=== PATIENT | female | born 1985 | race American Indian/Alaskan Native ===

== ENCOUNTER 2017-11-26 18:09 | Inpatient (IN) | payer MEDICAID ==
[2017-11-26] MEDS ORDERED: LACTATED RINGERS 1,000 ML IV ONE (20:32)
[2017-11-26 21:46] LABS: Hematocrit 31.3 % (30.3-42.9); Hemoglobin 10.3 gm/dl (10.1-14.3); Mean Corpuscular HGB Conc 33 % (30-34); Mean Corpuscular Hemoglobin 27 pg (28-32); Mean Corpuscular Volume 83 fl (79-97); Platelet Count 322 K/mm3 (140-440); Red Blood Count 3.79 M/mm3 (3.65-5.03); Red Cell Distribution Width 17.5 % (13.2-15.2)
[2017-11-27] MEDS ORDERED: LACTATED RINGERS 1,000 ML ONE (06:15)
[2017-11-27] MEDS: STADOL IV PRN ×2 (06:19→08:46)
--- NOTE | 2017-11-27 09:54 | History and Physical Report ---
History of Present Illness Date of examination: 11/27/17 Date of admission: 11/26/17 22:43 Chief complaint: My water broke at 1530 on 11/26/2017 History of present illness: Early entry to care, course complicated by Anemia (FeSO4 PO BID), and a Facial lesion ([facility] Consult). Past History Past Medical History: no pertinent history Past Surgical History: no surgical history Family/Genetic History: none Social history: no significant social history - Obstetrical History Expected Date of Delivery: 12/05/17 Actual Gestation: 38 Week(s) 6 Day(s) : 3 Para: 2 Hx # Term Pregnancies: 1 Number of Pregnancies: 1 Number of Living Children: 2 #1 Infant Gender: Male year: 2,007 Birthweight: 2.523 kg Method of Delivery: Vaginal Gestational age at delivery: 36 #2 Infant Gender: Female year: 2,017 Birthweight: 2.722 kg Method of Delivery: Vaginal Gestational age at delivery: 40 Complications: none Medications and Allergies Allergies Allergy/AdvReac Type Severity Reaction Status Date / Time No Known Allergies Allergy Unverified 09/27/15 18:55 Home Medications Medication Instructions Recorded Confirmed Last Taken Type Acetaminophen/Codeine [Tylenol #3] 1 tab PO Q6H PRN #7 tab 09/28/15 11/27/17 Unknown Rx Ferrous Sulfate [Feosol 325 MG tab] 1 tab PO QDAY 11/27/17 11/27/17 11/25/17 18: 00 History 1 Vits96/Iron Fum/Folic 1 tab PO QDAY 11/27/17 11/27/17 11/25/17 18:00 History [ Tablet] 1 Active Meds: Active Medications Butorphanol Tartrate (Stadol) 2 mg IV Q2H PRN PRN Reason: Labor Pain Last Admin: 11/27/17 08:46 Dose: 2 mg Oxytocin/Sodium Chloride (Pitocin/Ns 20 Unit/1000ml Drip) 20 units in 1,000 mls @ 125 mls/hr IV DIRECT SEBASTIÁN Oxytocin/Sodium Chloride (Pitocin/Ns 30 Unit/500ml) 30 units in 500 mls @ 4 mls /hr IV TITR SEBASTIÁN; Protocol Last Titration: 11/27/17 09:45 Dose: 8 ml/hr, 8 mls/hr Review of Systems All systems: negative - Vital Signs Vital signs: Vital Signs Pulse BP 85 134/77 11/26/17 20:12 11/26/17 20:12 Temp Pulse Resp BP Pulse Ox 98.8 F 88 18 131/76 98 11/27/17 07:55 11/27/17 09:47 11/27/17 06:49 11/27/17 09:28 11/27/17 09:47 - Physical Exam Breasts: Positive: normal Cardiovascular: Regular rate Lungs: Positive: Clear to auscultation, Normal air movement Abdomen: Positive: normal appearance, soft, normal bowel sounds Genitourinary (Female): Positive: normal external genitalia, normal perenium Uterus: Positive: enlarged - Obstetrical FHR: category 1 Uterine Contraction Monitor Mode: External Cervical Dilatation: 5.5 (Leaking a moderate amount of clear fluid) Cervical Effacement Percentage: 60 station: -2 Uterine Contraction Pattern: Irregular Uterine Tone Measurement Phase: Resting Uterine Contraction Intensity: Moderate Results Result Diagrams: 11/26/17 20:44 Abnormal lab results 11/26/17 Range/Units 20:44 WBC 12.8 H (4.5-11.0) K/mm3 MCH 27 L (28-32) pg RDW 17.5 H (13.2-15.2) % All other labs normal. Assessment and Plan A: IUP @ 38 6/7 Weeks Category I Tracing PROM (Prolonged Rupture) GBS Negative P: Admit to L&D per Routine Orders ABX Prophylaxis due to prolonged rupture Pitocin Induction IV Pain Control
[2017-11-27] MEDS ORDERED: MINERAL OIL PO PRN (09:59)
[2017-11-27] MEDS ORDERED: NARCAN 0.4 MG/1 ML IV PRN (09:59)
[2017-11-27] MEDS ORDERED: XYLOCAINE 2% INFILTRATI ONE (09:59)
[2017-11-27] MEDS ORDERED: POLYCILLIN/NS 2 GM/100 ML 2 GM/100 ML BAG IV ONE (09:59)
[2017-11-27] MEDS ORDERED: ZOFRAN IV PRN (09:59)
[2017-11-27] MEDS ORDERED: LACTATED RINGERS 1,000 ML IV SCH (10:00)
[2017-11-27] MEDS ORDERED: PITOCin/NS 30 UNIT/500ML 30 UNITS/500 ML BAG IV SCH (10:00)
[2017-11-27] MEDS ORDERED: AMPICILLIN/NS 1 GM/50 ML 1 GM/50 ML BAG IV SCH (14:01)
--- NOTE | 2017-11-27 14:26 | Progress Note ---
Assessment and Plan A: IUP @ 38 6/7 Weeks Category I Tracing PROM (Prolonged Rupture) GBS Negative Poor Pain Control P: Epidural Anesthesia Internals X2 Continue Pitocin Augmentation Continue ABX Prophylaxis Subjective - Subjective Date of service: 11/27/17 Interval history: Early entry to care, course complicated by Anemia (FeSO4 PO BID), and a Facial lesion ([facility] Consult). Patient reports: loss of fluid, movement normal, contractions (Requesting Epidural) Objective - Vital Signs Vital Signs: Vital Signs - 12hr 11/27/17 11/27/17 11/27/17 02:26 02:31 02:36 Temperature Pulse Rate 86 90 84 Respiratory Rate Blood Pressure Blood Pressure [Left] O2 Sat by Pulse 96 96 96 Oximetry 11/27/17 11/27/17 11/27/17 02:41 02:46 02:51 Temperature Pulse Rate 104 H 90 100 H Respiratory Rate Blood Pressure Blood Pressure [Left] O2 Sat by Pulse 97 96 96 Oximetry 11/27/17 11/27/17 11/27/17 02:56 03:01 03:06 Temperature Pulse Rate 95 H 94 H 90 Respiratory Rate Blood Pressure Blood Pressure [Left] O2 Sat by Pulse 97 97 98 Oximetry 11/27/17 11/27/17 11/27/17 03:11 03:16 03:21 Temperature Pulse Rate 88 85 92 H Respiratory Rate Blood Pressure Blood Pressure [Left] O2 Sat by Pulse 97 97 98 Oximetry 11/27/17 11/27/17 11/27/17 03:26 03:31 03:36 Temperature Pulse Rate 87 87 93 H Respiratory Rate Blood Pressure Blood Pressure [Left] O2 Sat by Pulse 97 97 98 Oximetry 11/27/17 11/27/17 11/27/17 03:37 03:41 03:46 Temperature 98.5 F Pulse Rate 91 H 97 H 88 Respiratory 18 Rate Blood Pressure 125/70 Blood Pressure 125/70 [Left] O2 Sat by Pulse 89 97 96 Oximetry 11/27/17 11/27/17 11/27/17 03:51 03:56 04:01 Temperature Pulse Rate 94 H 88 96 H Respiratory Rate Blood Pressure Blood Pressure [Left] O2 Sat by Pulse 97 97 96 Oximetry 11/27/17 11/27/17 11/27/17 04:06 04:11 04:16 Temperature Pulse Rate 92 H 103 H 94 H Respiratory Rate Blood Pressure Blood Pressure [Left] O2 Sat by Pulse 96 96 97 Oximetry 11/27/17 11/27/17 11/27/17 04:36 04:37 04:41 Temperature Pulse Rate 95 H 50 L 94 H Respiratory Rate Blood Pressure Blood Pressure [Left] O2 Sat by Pulse 98 92 98 Oximetry 11/27/17 11/27/17 11/27/17 04:46 04:51 04:56 Temperature Pulse Rate 103 H 91 H 91 H Respiratory Rate Blood Pressure Blood Pressure [Left] O2 Sat by Pulse 98 96 97 Oximetry 11/27/17 11/27/17 11/27/17 05:01 05:06 05:11 Temperature Pulse Rate 96 H 91 H 94 H Respiratory Rate Blood Pressure Blood Pressure [Left] O2 Sat by Pulse 97 97 99 Oximetry 11/27/17 11/27/17 11/27/17 05:16 05:21 05:26 Temperature Pulse Rate 97 H 91 H 98 H Respiratory Rate Blood Pressure Blood Pressure [Left] O2 Sat by Pulse 97 98 97 Oximetry 11/27/17 11/27/17 11/27/17 05:31 05:36 05:41 Temperature Pulse Rate 100 H 101 H 103 H Respiratory Rate Blood Pressure Blood Pressure [Left] O2 Sat by Pulse 96 97 99 Oximetry 11/27/17 11/27/17 11/27/17 05:46 05:51 05:56 Temperature Pulse Rate 93 H 106 H 104 H Respiratory Rate Blood Pressure Blood Pressure [Left] O2 Sat by Pulse 97 98 97 Oximetry 11/27/17 11/27/17 11/27/17 06:01 06:06 06:11 Temperature Pulse Rate 104 H 97 H 98 H Respiratory Rate Blood Pressure Blood Pressure [Left] O2 Sat by Pulse 99 97 97 Oximetry 11/27/17 11/27/17 11/27/17 06:16 06:19 06:21 Temperature Pulse Rate 102 H 105 H Respiratory 16 Rate Blood Pressure Blood Pressure [Left] O2 Sat by Pulse 99 97 Oximetry 11/27/17 11/27/17 11/27/17 06:25 06:26 06:31 Temperature Pulse Rate 107 H 107 H 98 H Respiratory Rate Blood Pressure Blood Pressure [Left] O2 Sat by Pulse 94 94 96 Oximetry 11/27/17 11/27/17 11/27/17 06:36 06:41 06:46 Temperature Pulse Rate 101 H 98 H 99 H Respiratory Rate Blood Pressure Blood Pressure [Left] O2 Sat by Pulse 97 96 98 Oximetry 11/27/17 11/27/17 11/27/17 06:49 06:50 06:51 Temperature Pulse Rate 101 H 99 H Respiratory 18 Rate Blood Pressure Blood Pressure [Left] O2 Sat by Pulse 94 97 Oximetry 11/27/17 11/27/17 11/27/17 06:56 07:01 07:06 Temperature Pulse Rate 99 H 98 H 103 H Respiratory Rate Blood Pressure Blood Pressure [Left] O2 Sat by Pulse 96 96 97 Oximetry 11/27/17 11/27/17 11/27/17 07:11 07:16 07:17 Temperature Pulse Rate 94 H 98 H 100 H Respiratory Rate Blood Pressure 135/72 Blood Pressure [Left] O2 Sat by Pulse 96 97 Oximetry 11/27/17 11/27/17 11/27/17 07:21 07:26 07:31 Temperature Pulse Rate 99 H 97 H 95 H Respiratory Rate Blood Pressure Blood Pressure [Left] O2 Sat by Pulse 97 96 97 Oximetry 11/27/17 11/27/17 11/27/17 07:36 07:41 07:46 Temperature Pulse Rate 99 H 93 H 94 H Respiratory Rate Blood Pressure Blood Pressure [Left] O2 Sat by Pulse 97 97 96 Oximetry 11/27/17 11/27/17 11/27/17 07:51 07:55 07:56 Temperature 98.8 F Pulse Rate 99 H 97 H Respiratory Rate Blood Pressure Blood Pressure [Left] O2 Sat by Pulse 97 97 Oximetry 11/27/17 11/27/17 11/27/17 08:01 08:06 08:11 Temperature Pulse Rate 97 H 94 H 94 H Respiratory Rate Blood Pressure Blood Pressure [Left] O2 Sat by Pulse 98 97 97 Oximetry 11/27/17 11/27/17 11/27/17 08:16 08:21 08:47 Temperature Pulse Rate 97 H 90 98 H Respiratory Rate Blood Pressure Blood Pressure [Left] O2 Sat by Pulse 97 97 96 Oximetry 11/27/17 11/27/17 11/27/17 08:52 08:57 09:02 Temperature Pulse Rate 95 H 110 H 98 H Respiratory Rate Blood Pressure Blood Pressure [Left] O2 Sat by Pulse 96 98 96 Oximetry 11/27/17 11/27/17 11/27/17 09:04 09:07 09:11 Temperature Pulse Rate 100 H 95 H 97 H Respiratory Rate Blood Pressure Blood Pressure [Left] O2 Sat by Pulse 94 95 94 Oximetry 11/27/17 11/27/17 11/27/17 09:12 09:17 09:18 Temperature Pulse Rate 96 H 94 H 95 H Respiratory Rate Blood Pressure Blood Pressure [Left] O2 Sat by Pulse 96 94 94 Oximetry 11/27/17 11/27/17 11/27/17 09:22 09:27 09:28 Temperature Pulse Rate 97 H 91 H 93 H Respiratory Rate Blood Pressure 131/76 Blood Pressure [Left] O2 Sat by Pulse 97 97 Oximetry 11/27/17 11/27/17 11/27/17 09:32 09:37 09:40 Temperature Pulse Rate 98 H 97 H 94 H Respiratory Rate Blood Pressure Blood Pressure [Left] O2 Sat by Pulse 96 97 92 Oximetry 11/27/17 11/27/17 11/27/17 09:42 09:47 09:52 Temperature Pulse Rate 89 88 90 Respiratory Rate Blood Pressure Blood Pressure [Left] O2 Sat by Pulse 97 98 96 Oximetry 11/27/17 11/27/17 11/27/17 09:55 09:57 09:58 Temperature Pulse Rate 90 93 H 90 Respiratory Rate Blood Pressure 132/74 Blood Pressure [Left] O2 Sat by Pulse 94 95 Oximetry 11/27/17 11/27/17 11/27/17 10:02 10:04 10:07 Temperature Pulse Rate 89 93 H 94 H Respiratory Rate Blood Pressure Blood Pressure [Left] O2 Sat by Pulse 96 94 96 Oximetry 11/27/17 11/27/17 11/27/17 10:12 10:17 10:18 Temperature Pulse Rate 96 H 94 H 92 H Respiratory Rate Blood Pressure Blood Pressure [Left] O2 Sat by Pulse 97 94 94 Oximetry 11/27/17 11/27/17 11/27/17 10:22 10:27 10:29 Temperature Pulse Rate 91 H 93 H 89 Respiratory Rate Blood Pressure 157/81 Blood Pressure [Left] O2 Sat by Pulse 93 98 Oximetry 11/27/17 11/27/17 11/27/17 10:32 10:35 10:37 Temperature Pulse Rate 90 96 H 91 H Respiratory Rate Blood Pressure Blood Pressure [Left] O2 Sat by Pulse 96 93 95 Oximetry 11/27/17 11/27/1718 10:42 10:46 10:47 Temperature Pulse Rate 91 H 92 H 93 H Respiratory Rate Blood Pressure 150/80 Blood Pressure [Left] O2 Sat by Pulse 96 97 Oximetry 11/27/17 11/27/17 11/27/17 10:52 10:57 10:59 Temperature Pulse Rate 89 89 88 Respiratory Rate Blood Pressure 146/80 Blood Pressure [Left] O2 Sat by Pulse 100 99 Oximetry 11/27/17 11/27/17 11/27/17 11:02 11:07 11:12 Temperature Pulse Rate 89 87 93 H Respiratory Rate Blood Pressure Blood Pressure [Left] O2 Sat by Pulse 100 100 100 Oximetry 11/27/17 11/27/17 11/27/17 11:17 11:22 11:27 Temperature Pulse Rate 88 92 H 90 Respiratory Rate Blood Pressure Blood Pressure [Left] O2 Sat by Pulse 100 99 99 Oximetry 11/27/17 11/27/17 11/27/17 11:28 11:32 11:37 Temperature Pulse Rate 90 91 H 96 H Respiratory Rate Blood Pressure 147/88 Blood Pressure [Left] O2 Sat by Pulse 99 100 Oximetry 11/27/17 11/27/17 11/27/17 11:42 11:46 11:53 Temperature Pulse Rate 92 H 25 L 97 H Respiratory Rate Blood Pressure Blood Pressure [Left] O2 Sat by Pulse 99 88 100 Oximetry 11/27/17 11/27/17 11/27/17 11:58 12:00 12:03 Temperature Pulse Rate 93 H 92 H 94 H Respiratory Rate Blood Pressure 140/72 Blood Pressure [Left] O2 Sat by Pulse 100 100 Oximetry 11/27/17 11/27/17 11/27/17 12:08 12:13 12:18 Temperature Pulse Rate 96 H 95 H 102 H Respiratory Rate Blood Pressure Blood Pressure [Left] O2 Sat by Pulse 100 99 99 Oximetry 11/27/17 11/27/17 11/27/17 12:23 12:28 12:29 Temperature Pulse Rate 101 H 97 H 97 H Respiratory Rate Blood Pressure 129/66 Blood Pressure [Left] O2 Sat by Pulse 99 99 Oximetry 11/27/17 11/27/17 11/27/17 12:33 12:38 12:43 Temperature Pulse Rate 96 H 98 H 103 H Respiratory Rate Blood Pressure Blood Pressure [Left] O2 Sat by Pulse 99 98 99 Oximetry 11/27/17 11/27/17 11/27/17 12:48 12:53 12:58 Temperature Pulse Rate 95 H 98 H 99 H Respiratory Rate Blood Pressure Blood Pressure [Left] O2 Sat by Pulse 99 99 99 Oximetry 11/27/17 11/27/17 11/27/17 12:59 13:03 13:08 Temperature Pulse Rate 96 H 96 H 98 H Respiratory Rate Blood Pressure 133/79 Blood Pressure [Left] O2 Sat by Pulse 99 100 Oximetry 11/27/17 11/27/17 11/27/17 13:13 13:29 13:48 Temperature Pulse Rate 97 H 98 H 106 H Respiratory Rate Blood Pressure 138/79 Blood Pressure [Left] O2 Sat by Pulse 99 98 Oximetry 11/27/17 11/27/17 11/27/17 13:53 13:58 14:03 Temperature Pulse Rate 99 H 97 H 105 H Respiratory Rate Blood Pressure 145/77 Blood Pressure [Left] O2 Sat by Pulse 98 98 96 Oximetry 11/27/17 11/27/17 11/27/17 14:08 14:13 14:18 Temperature Pulse Rate 105 H 106 H 106 H Respiratory Rate Blood Pressure Blood Pressure [Left] O2 Sat by Pulse 94 97 96 Oximetry 11/27/17 14:19 Temperature Pulse Rate 112 H Respiratory Rate Blood Pressure Blood Pressure [Left] O2 Sat by Pulse 94 Oximetry - Exam Breasts: normal, mass Lungs: Clear to auscultation, Normal air movement Abdomen: Present: normal appearance, soft, normal bowel sounds Uterus: Present: normal, firm, fundal height above umbilicus FHR: category 1 Uterine Contraction Monitor Mode: Internal Cervical Dilatation: 7.5 (leaking a moderate amount of clear fluid) Cervical Effacement Percentage: 85 station: 1-2 Uterine Contraction Pattern: Regular Uterine Tone Measurement Phase: Resting Uterine Contraction Intensity: Strong/Firm Extremities: normal - Labs Labs: Abnormal Labs 11/26/17 20:44 WBC 12.8 H MCH 27 L RDW 17.5 H Laboratory Results - last 24 hr 11/26/17 11/26/17 11/26/17 20:44 20:44 20:48 WBC 12.8 H RBC 3.79 Hgb 10.3 Hct 31.3 MCV 83 MCH 27 L MCHC 33 RDW 17.5 H Plt Count 322 RPR Nonreactive Blood Type O POSITIVE Antibody Screen Negative
[2017-11-27] MEDS ORDERED: NARCAN 2 MG/2 ML IV PRN (14:38)
--- NOTE | 2017-11-27 14:38 | Anesthesia Consultation ---
Anesthesia Consult and Med Hx Date of service: 11/27/17 - Airway Anesthetic Teeth Evaluation: Good ROM Head & Neck: Adequate Mental/Hyoid Distance: Adequate Mallampati Class: Class II Intubation Access Assessment: Probably Good - Pre-Operative Health Status ASA Pre-Surgery Classification: ASA2 Proposed Anesthetic Plan: Epidural, Spinal - Pulmonary Hx Asthma: No COPD: No Hx Pneumonia: No - Cardiovascular System Hx Hypertension: No - Central Nervous System Hx Seizures: No Hx Psychiatric Problems: No - Endocrine Hx Renal Disease: No Hx End Stage Renal Disease: No Hx Hypothyroidism: No Hx Hyperthyroidism: No - Hematic Hx Anemia: No Hx Sickle Cell Disease: No - Other Systems Hx Alcohol Use: No
[2017-11-27] MEDS: PITOCin/NS 20 UNIT/1000ML DRIP 20 UNITS/1,000 ML BAG IV SCH ×2 (15:00→15:43)
[2017-11-27] MEDS ORDERED: fentaNYL-BUPIV 2 MCG/ML-0.125% 200 MCG/100 ML BAG EPIDURAL SCH (15:00)
[2017-11-27] MEDS ORDERED: BENADRYL PO PRN (15:22)
[2017-11-27] MEDS ORDERED: NORCO 5/325 PO PRN (15:22)
--- NOTE | 2017-11-27 15:32 | Procedure Note ---
OB Delivery Note - Delivery Date of Delivery: 11/27/17 (1454) Surgeon: EV DEGROOT Estimated blood loss: other (250) - Vaginal Delivery presentation: vertex Delivery position: OA Intrapartum events: prolonged active phase Delivery induction: none Delivery monitor: internal FHT, internal uterine Route of delivery: Delivery placenta: spontaneous Delivery cord: 3 umbilical vessels Episiotomy: none Delivery laceration: none Anesthesia: epidural Delivery comments: of a live 6'13 female over a intact perineum under epidural anesthesia with Apgars of 8 and 9 at 1454 on 11/27/2017. directly to maternal abd/chest, skin to skin contact. Delayed cord clamping and cutting; cord cut by the Father of the Baby. Spontaneous delivery of placenta complete and intact with Dick side presenting at 1502. Fundus is firm and midline located 4 below the U. Lochia is scant. Cord blood collected; Placenta discarded. - Infant A at 1 minute: 8 at 5 minutes: 9 Infant Gender: Female (6'13)
[2017-11-27] MEDS ORDERED: SODIUM CHLORIDE FLUSH SYRINGE 10 ML IV NR (16:00)
[2017-11-27] MEDS: MOTRIN PO SCH ×2 (16:52→23:08)
[2017-11-28] MEDS: MOTRIN PO SCH ×3 (05:35→18:05)
[2017-11-28 05:55] LABS: Hematocrit 26.1 % (30.3-42.9); Hemoglobin 8.5 gm/dl (10.1-14.3)
--- NOTE | 2017-11-28 08:58 | Progress Note ---
Assessment and Plan - Patient Problems (1) Status post normal vaginal delivery Current Visit: Yes Status: Acute Plan to address problem: PPD 1 - stable Vital signs stable Continue routine PP orders Anticipate discharge in 24-48 hrs (2) Anemia in puerperium, baby delivered during current episode of care Current Visit: Yes Status: Acute Plan to address problem: Asymptomatic Iron therapy initiated with ferrous sulfate 325mg PO BID Subjective - Subjective Date of service: 11/28/17 Principal diagnosis: PPD #1, s/p Patient reports: appetite normal, voiding normally, pain well controlled, ambulating normally, other (c/o fever and chills last night; self-resolved), no dizzy ambulation : doing well Objective - Vital Signs Latest vital signs: Vital Signs Temp Pulse Resp BP BP Pulse Ox 11/28/17 06:35 16 11/28/17 05:35 18 11/28/17 00:07 20 11/27/17 23:08 20 11/27/17 17:10 99.1 F 94 H 16 141/81 97 11/27/17 16:52 20 11/27/17 16:00 98.7 F 11/27/17 15:58 97 H 145/77 11/27/17 15:00 112 H 119/71 11/27/17 14:58 103 H 130/76 11/27/17 14:53 107 H 100 11/27/17 14:48 109 H 100 11/27/17 14:43 102 H 97 11/27/17 14:42 104 H 128/69 11/27/17 14:38 107 H 96 11/27/17 14:33 114 H 97 11/27/17 14:28 107 H 96 11/27/17 14:23 108 H 98 11/27/17 14:19 112 H 94 11/27/17 14:18 106 H 96 11/27/17 14:13 106 H 97 11/27/17 14:08 105 H 94 11/27/17 14:03 105 H 96 11/27/17 14:00 98.8 F 11/27/17 13:58 97 H 145/77 98 11/27/17 13:53 99 H 98 11/27/17 13:48 106 H 98 11/27/17 13:29 98 H 138/79 11/27/17 13:13 97 H 99 11/27/17 13:08 98 H 100 11/27/17 13:03 96 H 99 11/27/17 12:59 96 H 133/79 11/27/17 12:58 99 H 99 11/27/17 12:53 98 H 99 11/27/17 12:48 95 H 99 11/27/17 12:43 103 H 99 11/27/17 12:38 98 H 98 11/27/17 12:33 96 H 99 11/27/17 12:29 97 H 129/66 11/27/17 12:28 97 H 99 11/27/17 12:23 101 H 99 11/27/17 12:18 102 H 99 11/27/17 12:13 95 H 99 11/27/17 12:08 96 H 100 11/27/17 12:03 94 H 100 11/27/17 12:00 98.8 F 92 H 140/72 11/27/17 11:58 93 H 100 11/27/17 11:53 97 H 100 11/27/17 11:46 25 L 88 11/27/17 11:42 92 H 99 11/27/17 11:37 96 H 100 11/27/17 11:32 91 H 99 11/27/17 11:28 90 147/88 11/27/17 11:27 90 99 11/27/17 11:22 92 H 99 11/27/17 11:17 88 100 11/27/17 11:12 93 H 100 11/27/17 11:07 87 100 11/27/17 11:02 89 100 11/27/17 10:59 88 146/80 11/27/17 10:57 89 99 11/27/17 10:52 89 100 11/27/17 10:47 93 H 97 11/27/17 10:46 92 H 150/80 18 10:42 91 H 96 11/27/17 10:37 91 H 95 11/27/17 10:35 96 H 93 11/27/17 10:32 90 96 18 10:29 89 157/81 11/27/17 10:27 93 H 98 11/27/17 10:22 91 H 93 11/27/17 10:18 92 H 94 18 10:17 94 H 94 11/27/17 10:12 96 H 97 11/27/17 10:07 94 H 96 11/27/17 10:04 93 H 94 11/27/17 10:02 89 96 11/27/17 10:00 98.6 F 11/27/17 09:58 90 132/74 11/27/17 09:57 93 H 95 11/27/17 09:55 90 94 11/27/17 09:52 90 96 11/27/17 09:47 88 98 11/27/17 09:42 89 97 11/27/17 09:40 94 H 92 11/27/17 09:37 97 H 97 11/27/17 09:32 98 H 96 11/27/17 09:28 93 H 131/76 11/27/17 09:27 91 H 97 11/27/17 09:22 97 H 97 11/27/17 09:18 95 H 94 11/27/17 09:17 94 H 94 11/27/17 09:12 96 H 96 11/27/17 09:11 97 H 94 11/27/17 09:07 95 H 95 11/27/17 09:04 100 H 94 11/27/17 09:02 98 H 96 11/27/17 08:57 110 H 98 Intake and Output 11/27/17 11/28/17 11/28/17 23:59 07:59 15:59 Other: Estimated Blood Loss 250 - Exam Abdomen: Present: normal appearance, soft Vulva: both: normal Uterus: Present: normal, firm, fundal height at umbilicus Extremities: Present: normal - Labs Labs: Abnormal lab results 11/28/17 Range/Units 05:12 Hgb 8.5 L (10.1-14.3) gm/dl Hct 26.1 L (30.3-42.9) %
[2017-11-28] MEDS: FEOSOL PO SCH (12:24)
[2017-11-28] MEDS ORDERED: ROXICODONE PO ONE (21:31)
[2017-11-29] MEDS ORDERED: ROXICODONE PO ONE (00:10)
[2017-11-29] MEDS: FEOSOL PO SCH ×2 (00:22→10:30)
[2017-11-29] MEDS: MOTRIN PO SCH ×2 (00:22→08:56)
--- NOTE | 2017-11-29 09:31 | Progress Note ---
Assessment and Plan A: day 2 S/P . Anemia. P: Discharge patient home today. discharge instructions and warning signs discussed in detail with patient. Rx Motrin 800 mg, #30, 1 po every 8 hour prn pain, 0 RF and Augmentin 500 mg, #14, 1 po BID called to [facility] on [address]. Advised patient to continue taking vitamins and iron supplements at home (patient states she has plenty of both at home). Advised patient to avoid intercourse, avoid driving, avoid lifting and heavy housework. Advised patient to follow up at [facility] in 6 weeks. Advised pt. to return promptly if she has any problems in the interim. Pt. voiced understanding of instructions. Subjective - Subjective Date of service: 11/29/17 Principal diagnosis: PPD #2, s/p Interval history: day 2 S/P spontaneous vaginal delivery. Patient is doing well. She reports small amount of lochia. She denies clots. She is voiding without difficulty. She is ambulating well. Tolerating a regular diet without nausea or vomiting. Patient is and bottlefeeding. She is planning to use Nexplanon for contraception at 8 weeks . Patient denies headache, cough, shortness of breath, chest pain, abdominal pain , leg pain, heavy bleeding, or symptoms of depression. Patient reports: appetite normal, voiding normally, pain well controlled, flatus , ambulating normally : doing well Objective - Vital Signs Latest vital signs: Vital Signs Temp Pulse Resp BP 11/29/17 08:56 18 11/29/17 01:36 98.3 F 82 18 99/52 11/28/17 16:50 98.3 F 73 18 111/67 Intake and Output 11/28/17 11/29/17 11/29/17 23:59 07:59 15:59 Intake Total 480 Balance 480 Intake: Oral 120 Intake, Free Water 360 Other: Total, Intake Amount 120 # Voids Void 1 2 - Exam Cardiovascular: Present: Regular rate, Normal S1, Normal S2 Lungs: Present: Clear to auscultation Abdomen: Present: normal appearance, soft, normal bowel sounds. Absent: distention, tenderness, guarding, rigidity Uterus: Present: normal, firm, fundal height at umbilicus Extremities: Present: normal. Absent: tenderness, edema
--- NOTE | 2017-11-29 09:45 | Discharge Summary ---
Providers - Providers Date of Admission: 11/26/17 22:43 Date of discharge: 11/29/17 Attending physician: CAS OBANDO Primary care physician: CAS OBANDO Hospitalization Reason for admission: rupture of membranes Delivery: Episiotomy: none Laceration: none Other procedures: none complications: none Discharge diagnosis: IUP at term delivered baby: female Pertinent studies: Labs Hospital course: Normal hospital course. Condition at discharge: Good Disposition: DC-01 TO HOME OR SELFCARE - Discharge Diagnoses (1) Term delivered Status: Acute Plan - Provider Discharge Summary Activity: routine, no sex for 6 weeks, no heavy lifting 4 weeks, no strenuous exercise Diet: routine Instructions: routine Additional instructions: Call your doctor immediately for: * Fever > 100.5 * Heavy vaginal bleeding ( >1 pad per hour) * Severe persistent headache * Shortness of breath * Reddened, hot, painful area to leg or breast - Follow up plan Follow up: CAS OBANDO [Primary Care Provider] - 6 Weeks
[2017-11-29 19:47] VITALS: BP 122/78
== END 2017-11-29 16:40 | disposition home or self-care (01) | DRG 775 ==
LOC: TRG 18:09 → LD 22:43 → OB 11-27 17:25
PROVIDERS: ADMIT Obstetrics & Gynecology; ATTEND Obstetrics & Gynecology
PROC: 10E0XZZ Delivery of Products of Conception, External Approach (ICD-10-PCS; principal; 2017-11-27)
PROC: 3E0R3BZ Introduction of Anesthetic Agent into Spinal Canal, Percutaneous Approach (ICD-10-PCS; 2017-11-27)
PROC: 00HU33Z Insertion of Infusion Device into Spinal Canal, Percutaneous Approach (ICD-10-PCS; 2017-11-27)
DX: O42.02 Full-term premature rupture of membranes, onset of labor within 24 hours of rupture (principal); Z3A.38 38 weeks gestation of pregnancy; Z37.0 Single live birth; Z88.8 Allergy status to other drugs, medicaments and biological substances; O63.9 Long labor, unspecified; O90.81 Anemia of the puerperium; D64.9 Anemia, unspecified
CPT/HCPCS: 36415; 85014; 85018; 85027; 86592; 86850; 86900; 86901; 99211; G0463; J0290; J0595; J2590; J7120